=== PATIENT | female | born 1980 | race Caucasian/White ===

== ENCOUNTER → 2017-01-03 | Outpatient (CLI) | payer BC, OTHER ==
[~2017-01-03] MED LIST: IBUP600T44 PO; PRCUNK PO; PRENTAB26 PO; ZNTT/150 PO
--- NOTE | 2017-01-03 12:13 | DIAGNOSTIC IMAGING REPORT ---
ULTRASOUND RIGHT VENOUS DOPP LOWER EXT UNILAT CLINICAL HISTORY: Right leg pain and swelling. COMPARISON STUDY: No previous studies for comparison. FINDINGS: Real-time and color flow Doppler imaging were performed. Flow was seen within the femoral, popliteal and calf veins with no intraluminal thrombus demonstrated. The saphenous vein is patent. There are thrombosed superficial varicosities within the right anterior proximal and mid calf. IMPRESSION: 1. No evidence of right lower extremity DVT 2. Thrombosed superficial varicosities within the right calf Electronically signed by: Steve Bruno M.D. 01/03/2017 12:12 PM Dictated Date/Time: 01/03/2017 12:11 PM
== END | disposition home or self-care (01) ==
LOC: C.ULTRBC 11:17
PROVIDERS: ATTEND Emergency Medicine
DX: R22.41 Localized swelling, mass and lump, right lower limb (principal); I82.811 Embolism and thrombosis of superficial veins of right lower extremity

== ENCOUNTER → 2017-03-22 | Outpatient (CLI) | payer OTHER ==
--- NOTE | 2017-03-22 07:37 | DIAGNOSTIC IMAGING REPORT ---
ULTRASOUND RIGHT UPPER QUADRANT ABDOMEN CLINICAL HISTORY: Postprandial epigastric abdominal pain. COMPARISON STUDY: No priors. TECHNIQUE: Real-time, grayscale, and color flow sonography of the right upper quadrant of the abdomen was performed. Images are reviewed in the transverse and longitudinal planes. FINDINGS: Liver: The liver is normal in size and echotexture. There is no intrahepatic biliary ductal dilatation. The main portal vein is patent. Gallbladder: The gallbladder is normal in appearance. Minimal sludge is suggested. No gallstones are identified. There is no gallbladder wall thickening or pericholecystic fluid. A sonographic Silverman's sign is reportedly absent. The common bile duct measures up to 0.4 cm in diameter. Pancreas: Visualized portions of the pancreatic head and body are normal in appearance. The splenic vein is patent. Right kidney: Survey images of the right kidney demonstrate normal size and echotexture. There is no hydronephrosis. Ascites: None. IMPRESSION: No acute sonographic abnormality is identified in the right upper quadrant. Minimal biliary sludge is noted. No shadowing gallstones are seen. Electronically signed by: David Cobian M.D. 03/22/2017 7:35 AM Dictated Date/Time: 03/22/2017 7:34 AM
== END | disposition home or self-care (01) ==
LOC: C.ULTR 06:49
PROVIDERS: ATTEND Physician Assistant
DX: R10.13 Epigastric pain (principal)

== ENCOUNTER → 2017-05-24 | Outpatient (CLI) | payer OTHER ==
--- NOTE | 2017-05-24 18:34 | DIAGNOSTIC IMAGING REPORT ---
CHEST 2 VIEWS ROUTINE CLINICAL HISTORY: 36 years-old Female presenting with FATIGUE AND MALAISE, cough. TECHNIQUE: PA and lateral views of the chest were obtained. COMPARISON: None. FINDINGS: Cardiomediastinal silhouette normal. Lungs and pleural spaces clear. Osseous structures and upper abdomen normal. IMPRESSION: 1. No acute cardiopulmonary disease. Electronically signed by: Job Ray M.D. 05/24/2017 6:33 PM Dictated Date/Time: 05/24/2017 6:32 PM
== END | disposition home or self-care (01) ==
LOC: C.RAD 18:21
PROVIDERS: ATTEND Physician Assistant
DX: R53.83 Other fatigue (principal); R05 Cough